=== PATIENT | male | born 1985 | race Caucasian/White ===

== ENCOUNTER 2016-07-21 10:06 | Emergency (ER) | payer BC ==
--- NOTE | 2016-07-21 10:23 | ERNOTE ---
Chest Pain/Cardiac HPI Date of Service: 07/21/16 Chief Complaint: Chest Pain Time Seen by Provider: 07/21/16 10:15 Source: patient Exam Limitations: no limitations Immunizations: IMMUNIZATION HX Immunizations Up to Date Yes Allergies/Adverse Reactions: Allergies No Known Allergies Allergy (Verified 07/21/16 10:15) Home Medications: HOME MEDICATIONS NK [No Home Medication] 07/21/16 [Last Taken Unknown] Narrative: Patient presents to the ED for chest pain. This is chest pain that has been going on for 2 days constantly. It is the left side of his chest lower chest and he can feel it to his left tricep. No trauma. No fever. No cough. No SOB. No clear pleuritic component. Has had pains just like this before but has never lasted this long. No abdominal pain. Has not seen anyone else for this. No exertional pains. Timing: constant Severity/Quality: moderate Location: left chest Chest Pain Radiation: other - left tricep Activities at Onset: none Modifying Factors - Improves: Present: nothing Modifying Factors - Worsens: Present: nothing Associated Symptoms: Absent: syncope, cough, shortness of breath, diaphoresis, fever/chills, abdominal pain Prior Treatment: Denies: recently seen Review of Systems - Review of Systems Constitutional: Absent: fever ENT: Present: no symptoms reported Respiratory: Absent: shortness of breath Cardiology: Present: See HPI Gastrointestinal/Abdominal: Absent: abdominal pain Genitourinary: Present: no symptoms reported Musculoskeletal: Present: See HPI Skin: Absent: rash All Other Systems: All systems neg except as marked - Patient's Past Medical History Patient History - Medical: No pertinent hx Patient History - Cardiac/Respiratory: No pertinent hx Patient History - Cancer: No Hx of Cancer Patient History - Surgical Procedures: Cholecystectomy - Social History Smoking Status: Never smoker Have you smoked in the past 12 months: No - Immunizations Immunizations Up to Date: Yes Physical Exam - Physical Exam General Appearance: Present: alert, no apparent distress Eye Exam: Normal inspection: bilateral, PERRL: bilateral Ears, Nose, Throat: Present: normal ENT inspection Neck: Present: normal inspection Respiratory: Present: no respiratory distress, normal breath sounds, no accessory muscle use, lungs clear, chest tenderness, other - mild left chest wall Cardiovascular/Chest: Present: regular rate, rhythm, no murmur, normal peripheral pulses Peripheral Pulses: N=norm/S=strong/W=weak/B=bound/A=absent: Radial (R): Normal, Radial (L): Normal Gastrointestinal/Abdominal: Present: normal bowel sounds, nontender, soft Back Exam: Present: normal range of motion Extremity Exam: Present: normal inspection, non-tender, normal range of motion, no edema, other - No DVT findings Neurological Exam: Present: alert, normal mood/affect, no motor/sensory deficits Skin Exam: Present: normal color, warm/dry. Absent: skin rash ED Progress - Results and Orders Patient's Lab Results:: I have reviewed the patient's lab results. - Vital Signs Patient's Vital Signs:: I have reviewed the patient's vital signs. Vital Signs: Vital Signs 07/21/16 10:10 Temperature 36.7 C Pulse Rate 62 Respiratory 16 Rate Blood Pressure 143/102 O2 Sat by Pulse 97 Oximetry - EKG EKG: NSR EKG read: Interp. by me EKG Comments: NSR rate 62. non-specific EKG, no STEMI. - X-Ray X-Ray #1 X-Ray: chest Interpretation: Reviewed by me X-ray Comments: I reviewed official CXR report from radiology - Progress/Reassessment Chief Complaint: Chest Pain Progress Note-Subjective: 07/21/16 11:16 Nothing to suggest ACS, neg trop without acute EKG changes with atypical and constant Sx for 48hours. Nothing to suggest PE or aortic dissection, d-dimer normal, no CT indicated. No clear acute life threat noted. He feels like going home. I discussed with him the CXR finding and he may need thyroid US, he understands need for follow-up. I discussed warnign signs and reasons to return as well as the need for close f/u. Departure - Departure Clinical Impression: Atypical chest pain Disposition: Home self-care Condition: Stable Additional Instructions: You need to see your primary doctor as soon as possible for a re-check and to discuss further testing. Return here for fever, increased pain, weakness, trouble breathing or if your condition worsens or changes in any way. Referrals: Fartun Kaur, DIRECT MARKETING MANAGER [Primary Care Provider] -
[2016-07-21 10:37] LABS: Hematocrit 43.7 % (42.0-52.0); Hemoglobin 15.3 gm/dL (13.5-18.0); Mean Cell Volume 85.2 fl (78-100); Mean Corpuscular Hemoglobin 29.8 pg (27-31); Mean Platelet Volume 9.7 fl (6.0-9.5); Neutrophil % 51.9 % (42-75.0); Platelet Count 293 K/mm3 (150-450); Red Blood Count 5.13 M/mm3 (4.7-6.0); Red Cell Distribution Width 11.7 % (11.5-14.0); White Blood Count 7.7 K/mm3 (4.0-10.5)
[2016-07-21 10:47] LABS: ALT 30 U/L (19-67); AST 16 U/L (0-48); Alkaline Phosphatase * 48 U/L (50-170); Anion Gap 10.6 mmol/L (6.8-13.8); Bilirubin, Total 0.7 mg/dL (0.0-1.1); Blood Urea Nitrogen 17 mg/dL (6-23); Ca. Corrected For Albumin 8.7 mg/dL (8.4-10.2); Carbon Dioxide 29.1 mmol/L (24-32.6); Chloride 106 mmol/L (97-106); Glucose * 102 mg/dL (70-110); Potassium 3.7 mmol/L (3.4-4.6); Sodium 142 mmol/L (132-142); Total Protein 7.6 gm/dL (6.2-8.2); Troponin I Less than 0.017 ng/ml (0.00-0.10)
[2016-07-21 11:04] VITALS: BP 141/92
== END 2016-07-21 11:19 | disposition home or self-care (01) ==
LOC: ER 10:06
DX: R07.89 Other chest pain (principal)